=== PATIENT | male | born 1980 | race Two or more races ===

== ENCOUNTER 2016-05-18 01:46 | Emergency (ER) | payer SELFPAY ==
[~2016-05-18] VITALS: Ht 177.8 cm; Wt 72.6 kg
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
--- NOTE | 2016-05-18 02:22 | NUR ---
LAB AT BEDSIDE FOR BLOOD DRAW.
--- NOTE | 2016-05-18 03:05 | NUR ---
PT AOX4, GAIT TEST PASSED. DR. PETAR SESAY.
--- NOTE | 2016-05-18 03:08 | NUR ---
Patient discharged to home in stable condition. Written and verbal after care instructions given. Patient verbalizes understanding of instruction. ambulatory with a steady gait. instructed not to drive, pt verbalize understanding.
[2016-05-18 03:10] VITALS: BP 118/87
== END 2016-05-18 03:11 | disposition home or self-care (01) ==
LOC: ER 01:48
DX: F10.129 Alcohol abuse with intoxication, unspecified (principal); R40.4 Transient alteration of awareness
CPT/HCPCS: 36415; 70450-TC; 82962-TC; A4606; G0480; Z7610